=== PATIENT | male | born 1970 | race Caucasian/White ===

== ENCOUNTER 2017-01-20 11:41 | Emergency (ER) | payer MEDICAID | END 2017-01-20 14:15 | disposition home or self-care (01) | LOC: D.ER 11:41 | DX: L03.012 Cellulitis of left finger (principal); F17.200 Nicotine dependence, unspecified, uncomplicated ==

== ENCOUNTER 2017-02-10 11:41 | Emergency (ER) | payer MEDICAID | END 2017-02-10 13:14 | disposition home or self-care (01) | LOC: D.ER 11:41 | DX: M25.531 Pain in right wrist (principal); M79.641 Pain in right hand; F17.200 Nicotine dependence, unspecified, uncomplicated; W19.XXXA Unspecified fall, initial encounter ==

== ENCOUNTER 2017-03-06 21:21 | Emergency (ER) | payer MEDICAID | END 2017-03-06 23:10 | disposition home or self-care (01) | LOC: D.ER 21:21 | DX: R51 Headache (principal) ==